=== PATIENT | female | born 1965 | race Caucasian/White ===

== ENCOUNTER 2018-05-18 06:18 | Inpatient (IN) | payer OTHER ==
--- NOTE | 2018-05-17 20:46 | PDGENHP ---
History and Physical - Chief Complaint RIGHT HIP PAIN - History of Present Illness 1. 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 ~Kokoenjoys running, weight lifting, hiking and walking the dog. Mariaa's~bilateral~hip pain (R>>L)~started several years ago, with~no~ recalled trauma or injury, and with~no~previous complaints.~Kokohas~a known history of hip dysplasia. Dr. Liao evaluated Poly and referred her to us to discuss a Periacetabular Osteotomy. Presentation today is of~C-Shaped pattern~right~hip pain; posterior/lateral left. ~The hip~does~wake her~at night and~does~click and catch on~her. Sitting~ can be a real struggle~for her.~Kokodoes~report suffering from lower back pain episodes. Kokohas~participated in physical therapy (several months)~and has~tried other conservative measures including cortisone GT bursa~injection (1 year ago, no relief)~, dry needling and massage therapy.~Viktoria~has not~received sufficient symptomatic improvement. Kokohas not~utilized medication for pain management, including NSAID and OTC acetaminophen.~Kokohas used medication since the pain began. Kokounderstands that~viktoria~has a hip and pelvis problem which should be researched and wishes to get a better understanding of~her~hip status, followed by an establishment of a treatment strategy, hoping~viktoria~would be able to get back to~her~well being active life. History: Past medical history:~~ Patient~~has a past medical history of Dry eyes, Headache(784.0), Heart burn, Hepatitis, Liver disease, and Strabismus. Relevant familial history:~None which is relevant~ Past surgical history:~ No. Surgery Anesthesia 1 sinus general 2 C5-7 cervical disc replacement general 3 R RCR general Mariaa~describes problematic issues with general anesthesia which includes nausea. I have reviewed, verified and agree with the past medical, surgical, family and social history. Current Medications:~has a current medication list which includes the following prescription(s): calcium, carafate, cyclobenzaprine, dicyclomine, fluticasone, ibuprofen, lactobacillus acidophilus, lubricant eye (pg-peg 400)(pf), montelukast, multivitamin,ther and minerals, omeprazole, pseudoephedrine hcl, and itbfkamblx-qhxdexqjyxljq-bizfaxlu. ALLERGIES:~is allergic to avocado; no known drug allergies; and protein hydrolyzate, animal. Objective: Physical Examination: Kokois 5~feet~7~inches tall and weighs~160~Lbs. Kokois AAO x3; she~is well-nourished, in NAD. Skin is warm and dry. ~Breathing is non-labored. ~CV with RRR by pulse. Abdomen is soft, NTND. Currently,~she~walks with a~abnormal~antalgic gait favoring Left side Trendelenburg sign is~negative~and proprioception~is normal,~both~sides. She~presents~with no~signs of joint laxity.~Beightons Score:~0 Lower spine examination is~negative~for sciatic or femoral nerve irritation with negative~SLR &~femoral stretch tests. Range of motion of the spine is normal~for flexion, extension, and rotations,~with~associated lumbar~pain. Strength, Sensation and pulses are~normal -~bilaterally Ankles and knees exams are~normal~and~no~mal-alignment is evident.~ She~has~no leg length discrepancy. Thigh circumference is~symmetric~with no evidence for muscle atrophy~on both~ sides. Hip ROM (degrees): FL ER At 90~hip FL IR At 90~hip FL AB AD EX IR Neutral hip ER Neutral hip R 100 40 40 30 0 5 45 20 L 105 40 35 35 5 10 45 15 Specific hip and pelvis tests: Impingement Test ABY Roll Add. Longus R +++ +++ + +++ L ++ ++ Negative Negative Glut. Med ITB Posterior Imp R ++ 5/5 strength Negative 5/5 strength Negative L Negative 5/5 strength Negative 5/5 strength Negative Squeeze test measured~weak Bony Symphysis pubis is~painful~to touch while concentric activity of the rectus abdominis, does~produce pain at its insertion. Ilio Psos specific tests are~negative for pain during cycling for~both hips~and no snap HF has~good strength~both hips. posterior~capsule tenderness Right HIP Greater trochanteric burse is~painful~on both hips.R>>L Piriformis tests: FAIR is~negative,~with no~local signs of neuritis related to sciatic nerve. SIJs examination is~painful R>>L~with~normal~ABY in relation and local tenderness. Hamstrings tests are~negative~functional contraction and negative~tendinopathy both hips. On a daily basis, the following percentages reflect~Mariaa's overall total pain: Deep hip:~80% GT:~20% Imaging: Radiology studies which I~have personally reviewed, analyzed and measured are below: XR: AP of the hip and pelvis: Performed in a~good~technique Coccyx~at level of~pubic symphysis Standing [place]~Lines are interrupted. Minimal~Pathological signs are seen in the Symphysis Pubis.~ Minimal~Pathological signs are seen at the Ischial~tuberosity. ~ Specific measurements show: NSA~ LCE Sourcil~Angle Sharp's angle Lat. Cam Lat. Pincer C.Over~sign Head~Coverage % ATDmm R N 20 10 45 - - - 75 N L N 21 10 43 - - - 69 N Pos. wall sign ISS NAD ~~Dysplasia Comments R Negative Negative 18.4~mm ++ L Negative Negative 21.8~mm ++ Sclerosis Sup. Lat. OA Cysts Joint Space-WBZ Joint Space-Medial R Negative Negative Negative 4.9~mm 4.7~mm L Negative Negative Negative 4.3~mm 4.5~mm X Table lateral: Anterior cam lesion is~seen~on both hips. Alpha Angle: ~ Right~54~dergrees Left~57~degrees Poor Quality 1.5T Right Hip~MRI shows:~cartilage damage, with possible cystic changes and bone edema (unable to clearly delineate due to poor MRI quality), labral tear, labral hypertrophy Impression and plan:~ Mariaa~is a~52 y.o.~active female~suffering from symptomatic~Right~hip pain due to Hip Dyplasia~and~Femoroacetabular impingement (IGNACIA)~Cam type,~with~ resultant labral tear causing significant disability to~her~and altering~her~sport and life activities. Physical examination, imaging, and~her~story correspond with the diagnosis mentioned above. I explained that hip dysplasia is a condition wherein the hip joint has excessive play~and instability due to a variety of factors, including the depth and adequacy of the socket, the orientation of the femur bone, and ligament laxity around the hip joint. Dysplasia ranges in severity from borderline to jigar, with treatment options being specific to the specific nature of the problem. Left untreated, the instability in the hip joint can cause progressive tearing of the labrum and deterioration of the surface cartilage, ultimately resulting in progressive osteoarthritis of the hip. I explained that femoroacetabular impingement (IGNACIA - Cam type) arises due to a bony or soft tissue conflict between the femur (ball) and acetabulum (socket) caused by an abnormality in the shape of the femoral head and neck. Over time, repetitive impingement can result in damage to the labrum and adjacent surface cartilage within the socket, ultimately giving rise to progressive osteoarthritis of the hip. I explained that although a labral tear can be a source of pain, it is rarely the root of the problem and typically occurs secondary to an underlying abnormality in the shape and mechanics of the hip joint. I reviewed conservative treatment options for Dysplasia and IGNACIA including activity modification to avoid positions of impingement or instability, physical therapy, non-steroidal anti-inflammatory medications, and various injections (corticosteroid and PRP) aimed at reducing inflammation in the hip joint or/and preventing dynamic instability and impingement. PRP injections may promote healing and reduce symptoms in certain cases but it will not repair chronically damaged tissue. Although these measures may help to buy time~and reduce current level of symptoms, they are not a definitive solution to the problem given the underlying abnormality in the shape of the hip joint. Patients who have failed conservative management and continue to experience symptoms are candidates for definitive surgical treatment, which may consist of hip arthroscopy alone or in combination with more invasive bony realignment procedures of the hip socket and/or femur called periacetabular osteotomy (FER) or derotational femoral osteotomy (DFO). Hip arthroscopy typically includes treating the labrum with either repair or reconstruction of the torn labrum; as well as addressing the underlying abnormalities by restoring the normal shape to the hip joint. If the cartilage is damaged a Microfracture surgical procedure may also be necessary to help stimulate the growth of fibrocartilage. If a patient requires a labral reconstruction or a Microfracture, the initial rehabilitation from the surgery may take longer, but the fci results are typically favorable. I have explained that because of her age and gender, the results of hip arthroscopy are less reproducible/predictable than with younger patients or male patients of the same age. I reviewed the technical aspects of periacetabular osteotomy (FER) including risks, benefits, and expected course of recovery.~Mariaa~understands that FER is an inpatient procedure carried out through two medium sized incisions on the front and back of the hip joint. The hip socket is cut, realigned, and stabilized with 2 3 internal screws. Risks include infection, bleeding, injury to nearby nerves or vessels, stiffness, persistent pain, instability, failure of bony healing, implant related complications, and venous thromboembolic disease. Rarely, revision surgery may be required to address these problems. Risks, potential complications, side effects and recovery from surgical procedure were discussed in length. We explained how this surgery is an open procedure, and though patients tend to do well in the long-term, it involves significant pain in the first 2-4 weeks post-op and a rather lengthy rehab.~Overall recovery takes approximately 6 12~months depending on the extent of damage and degree of repair. Mariaa~understands that she~will undergo hip arthroscopy 1 week prior to the FER to address damage inside the hip joint. Mariaa~understands that hip arthroscopy and FER are two separate procedures that are best performed one week apart, with the arthroscopy commencing first to "tighten up" any pathology evident in the hip joint (labral repair, etc.) and the FER open procedure occurring 7-10 days later to realign the acetabulum. Dr. Liao will perform the Right Hip Arthroscopy and a week after this surgery we would do a Right Periacetabular Osteotomy. Kokowill review the info presented. In order to obtain more detailed information regarding the alignment, orientation, and shape of the bony hip and pelvis I will order a CT scan to be performed. The results of the CT scan, including femoral torsion and acetabular version measured values and 3D images, will aid me in deciding on the best treatment strategy and surgical pre-planning. Kokowill contact us if she~wishes to pursue further treatment in the future. Kokois happy with this plan. I have also supplied~her~with handouts, outlining the expected surgical treatment and rehab involved. I wish~MariaaCecyall the best, ~~ Daquan Alvarado, PAC History Information - Allergies/Home Medication List Allergies/Adverse Reactions: No Known Allergies Allergy (Verified 04/22/18 11:36) Home Medications: Acetaminophen [Tylenol 325mg (*)] 325 mg PO DAILY PRN 04/22/18 [Last Taken Unknown] Herbals/Supplements -Info Only 1 ea PO DAILY 04/22/18 [Last Taken Unknown] Montelukast Sodium [Singulair 10 mg (*)] 10 mg PO DAILY 04/22/18 [Last Taken Unknown] Omeprazole 40 mg PO DAILY 04/22/18 [Last Taken Unknown] buPROPion [Wellbutrin 100mg (*)] 100 mg PO DAILY 04/22/18 [Last Taken Unknown] I have personally reviewed and updated: medical history - Social History Smoking Status: Never smoked Review of Systems Review of Systems: Physical Exam Physical Exam:
[2018-05-18] MEDS ORDERED: ceFAZolin 2 GM/DEXTROSE 100 ML IV ONE (06:25)
[2018-05-18] MEDS ORDERED: ACETAMINOPHEN 500 MG TAB PO ONE (06:25)
[2018-05-18] MEDS ORDERED: TRANEXAMIC ACID 1,000 MG in NS 100 ML IV ONE (06:25)
[2018-05-18] MEDS ORDERED: PREGABALIN 150 MG CAP PO ONE (06:25)
[2018-05-18] MEDS ORDERED: SCOPOLAMINE HYDROBROMIDE 1 MG/3 DAYS PATCH TD ONE (06:25)
[2018-05-18] MEDS ORDERED: LR 1,000 ML IV ONE (06:26)
[2018-05-18] MEDS ORDERED: MIDAZOLAM 2 MG/2 ML VIAL IVP ONE (07:02)
--- NOTE | 2018-05-18 07:04 | PDANEPAE ---
ANE Past Medical History - Cardiovascular History Hx Hypertension: No Hx Arrhythmias: No Hx Chest Pain: No Hx Coronary Artery / Peripheral Vascular Disease: No Hx CHF / Valvular Disease: No Hx Palpitations: No - Pulmonary History Hx COPD: No Hx Asthma/Reactive Airway Disease: Yes Hx Recent Upper Respiratory Infection: No Hx Oxygen in Use at Home: No Hx Sleep Apnea: No Sleep Apnea Screening Result - Last Documented: Negative Pulmonary History Comment: SINGULAIR - Neurologic History Hx Cerebrovascular Accident: No Hx Seizures: No Hx Dementia: No Neurologic History Comment: MIGRAINES FREQUENTLY - Endocrine History Hx Diabetes: No - Renal History Hx Renal Disorders: No - Liver History Hx Hepatic Disorders: No Hepatic History Comment: RIN. HEP A 1981 - Neurological & Psychiatric Hx Hx Neurological and Psychiatric Disorders: No - Cancer History Hx Cancer: No - Congenital Disorder History Hx Congenital Disorders: No - GI History Hx Gastrointestinal Disorders: Yes Gastrointestinal History Comment: ACID REFLUX. IBS - Other Health History Other Health History: NEG - Chronic Pain History Chronic Pain: Yes (HIP PAIN R) - Surgical History Prior Surgeries: SINUS SURGERY. CERVICAL DISC SURGERY. ESOPHAGEAL ABLATION. R SHOULDER SCOPE. CHOLECYSTECTOMY. TUBAL & REVERSAL. TUMMY TUCK. R WRIST SURGERY. L ANKLE SURGERY ANE Review of Systems Review of Systems: - Exercise capacity METS (RN): 5 METS ANE Patient History - Allergies Allergies/Adverse Reactions: No Known Allergies Allergy (Verified 04/22/18 11:36) - Home Medications Home Medications: Acetaminophen [Tylenol 325mg (*)] 325 mg PO DAILY PRN 04/22/18 [Last Taken 05/17] Montelukast Sodium [Singulair 10 mg (*)] 10 mg PO DAILY 04/22/18 [Last Taken 03/06] RX: Herbals/Supplements -Info Only 1 ea PO DAILY 04/22/18 [Last Taken 1 Week Ago ~05/11/18] RX: Omeprazole 40 mg PO DAILY 04/22/18 [Last Taken 1 Week Ago ~05/11/18] buPROPion [Wellbutrin 100mg (*)] 100 mg PO DAILY 04/22/18 [Last Taken 05/17/18] - NPO status NPO Since - Liquids (Date): 05/17/18 NPO Since - Liquids (Time): 18:30 NPO Since - Solids (Date): 05/17/18 NPO Since - Solids (Time): 18:30 - Smoking Hx Smoking Status: Never smoked - Family Anes Hx Family Hx Anesthesia Complications: NEG ANE Labs/Vital Signs - Labs Result Diagrams: 05/18/18 06:55 - Vital Signs Blood Pressure: 106/80 Heart Rate: 84 Respiratory Rate: 16 O2 Sat (%): 96 Height: 170.18 cm Weight: 72.575 kg ANE Physical Exam - ASA Status ASA Status: II ANE Anesthesia Plan Anesthesia Plan: general endotracheal anesthesia Regional Anesthesia: single shot NB, POPC/PSR
[2018-05-18] MEDS ORDERED: morphINE PF 5 MG/10 ML INJ IT ONE (07:20)
[2018-05-18] MEDS ORDERED: DEXMEDETOMIDINE HCL 400 MCG in NS 100 ML IV SCH (07:30)
[2018-05-18] MEDS ORDERED: CITRATE DEXTROSE SOLN 500 ML BAG ONE (07:38)
[2018-05-18] MEDS ORDERED: PROPOFOL/EMULSION 500 MG/50 ML BOTTLE IV ONE ×6 (07:48→12:09)
[2018-05-18] MEDS ORDERED: ROCURONIUM 50 MG/5 ML VIAL ONE ×2 (07:53→08:56)
[2018-05-18] MEDS ORDERED: fentaNYL 100 MCG/2 ML INJ ONE (07:53)
[2018-05-18] MEDS ORDERED: PROPOFOL 200 MG/20 ML VIAL ONE ×2 (08:10→13:12)
[2018-05-18] MEDS ORDERED: ePHEDrine SULFATE 25 MG/5 ML SYR ONE ×2 (08:44→11:40)
[2018-05-18] MEDS ORDERED: DEXAMETHASONE 4 MG/ML VIAL ONE (09:12)
[2018-05-18] MEDS ORDERED: HYDROmorphONE/DILAUDID 2 MG/ML INJ ONE (09:32)
[2018-05-18] MEDS ORDERED: SUGAMMADEX SODIUM 200 MG/2 ML VIAL IVP ONE ×2 (10:06→10:20)
[2018-05-18] MEDS ORDERED: MIDAZOLAM 2 MG/2 ML VIAL ONE (10:07)
[2018-05-18] MEDS ORDERED: CISATRACURIUM BESYLATE 20 MG/10 ML VIAL IV ONE (10:09)
[2018-05-18] MEDS ORDERED: PHENYLEPHRINE HCL 100 MCG/ML SYR ONE ×3 (11:37→12:31)
[2018-05-18] MEDS ORDERED: ceFAZolin 1 GM VIAL ONE ×2 (12:00)
[2018-05-18] MEDS ORDERED: TRANEXAMIC ACID 1,000 MG in NS (SYRINGE) 50 ML IRR ONE (12:00)
[2018-05-18] MEDS ORDERED: CALCIUM CHLORIDE 1 GM/10 ML INJ ONE (12:59)
[2018-05-18] MEDS ORDERED: HYDROmorphONE/DILAUDID 1 MG/ML INJ IVP PRN (13:15)
[2018-05-18] MEDS ORDERED: DIAZEPAM 5 MG/ML 1 ML SYR IVP PRN (13:15)
[2018-05-18] MEDS ORDERED: PROMETHAZINE HCL 25 MG/ML INJ IVP PRN (13:15)
[2018-05-18] MEDS ORDERED: PHENYLEPHRINE HCL 100 MCG/ML SYR IVP PRN (13:15)
[2018-05-18] MEDS ORDERED: NS 500 ML IV PRN (13:15)
[2018-05-18] MEDS ORDERED: fentaNYL 100 MCG/2 ML INJ IVP PRN (13:15)
[2018-05-18] MEDS ORDERED: ALBUTEROL 3 ML DEYVIAL IH PRN (13:15)
[2018-05-18] MEDS ORDERED: NALOXONE HCL 0.4 MG/ML INJ IVP PRN ×3 (13:15→16:16)
[2018-05-18] MEDS ORDERED: METOCLOPRAMIDE 10 MG/2 ML VIAL IVP PRN (13:15)
[2018-05-18] MEDS ORDERED: LR 500 ML IV PRN (13:15)
[2018-05-18] MEDS ORDERED: DEXAMETHASONE 4 MG/ML VIAL IVP PRN (13:15)
[2018-05-18] MEDS ORDERED: ONDANSETRON 4 MG/2 ML VIAL IVP PRN ×3 (13:15→16:16)
[2018-05-18] MEDS ORDERED: MEPERIDINE 25 MG/0.5 ML AMP IVP PRN (13:15)
[2018-05-18] MEDS ORDERED: NALOXONE HCL 0.4 MG/ML INJ ONE (14:08)
[2018-05-18] MEDS ORDERED: PHENYLEPHRINE 10 MG/ML SDV ONE (14:17)
[2018-05-18] MEDS ORDERED: ONDANSETRON DISINTEGRATING 4 MG TAB PO PRN (14:33)
[2018-05-18] MEDS ORDERED: ACETAMINOPHEN 325 MG TAB PO PRN (14:33)
[2018-05-18] MEDS ORDERED: DIAZEPAM 2 MG TAB PO PRN (14:33)
[2018-05-18] MEDS ORDERED: POLYETHYLENE GLYCOL 3350 17 GM PKT PO PRN (14:33)
[2018-05-18] MEDS ORDERED: LACTULOSE 20 GM/30 ML UDCUP PO PRN (14:33)
[2018-05-18] MEDS ORDERED: MAGNESIUM HYDROXIDE 30 ML UDCUP PO PRN (14:33)
[2018-05-18] MEDS ORDERED: BISACODYL 10 MG SUPP PR PRN (14:33)
[2018-05-18] MEDS ORDERED: diphenhydrAMINE 25 MG CAP PO PRN (14:35)
--- NOTE | 2018-05-18 14:54 | PDMN ---
Medical Necessity Medical necessity: Pt meets inpt criteria per MD order and SG-MS, Musculoskeletal Surgery or Procedure GRG, R periacetabular osteotomy ( IP only list) for R hip dysplasia, auth #[id number] APPROVED FOR CPT 17666 DONE INPNT LOS 5 DAYS.
[2018-05-18] MEDS ORDERED: ALBUMIN 5% 500 ML IV ONE (15:22)
[2018-05-18] MEDS ORDERED: LR 1,000 ML IV SCH (16:00)
[2018-05-18 16:06] LABS: INR 1.27 (0.83-1.16); PROTIME(PATIENT) 15.4 SEC (12.0-15.0)
--- NOTE | 2018-05-18 16:28 | POSTANESTH ---
Post Anesthetic Evaluation Cardiovascular Status: Normal, Stable, Tx Hyper/Hypo-tension Respiratory Status: Normal, Stable Level of Consciousness/Mental Status: Can Participate in Eval Pain Control: Adequate, Prn Tx Ordered Nausea/Vomiting Control: Adequate, Prn Tx Ordered Complications Possibly Related to Anesthesia: Other, See Comments (REQUIRING PHENYLEPHRINE GTT 0.25 MCG/KG/MIN TO MAINTAIN SBP>90MMHG. LABS NORMAL. URINE OUTPUT 300 ML IN 1HR. I UPDATED THE PATIENT'S ON THE PHONE AT 16:20.)
[2018-05-18] MEDS: NS 1,000 ML IV SCH (17:29)
[2018-05-18] MEDS: PHENYLEPHRINE HCL 50 MG in D5W 250 ML IV SCH (17:30)
--- NOTE | 2018-05-18 17:41 | PDHOSCONS ---
<Mariaa Ellis - Last Filed: 05/18/18 18:43> History and Physical - Chief Complaint Hypotension - History of Present Illness Ms. Alan is a 52 y/o female who underwent a right periacetabular osteotomy today performed by Dr. Hope. [facility] medicine has been asked to consult for medical management. S/p procedure today, she was hypotensive and requires phenylephrine drip to maintain sbp > 90 mmHg. EBL 1600cc, 800cc transfused back to Ms. Alan w/cell saver. Total IV fluids 5,000 ml, output 1,200 ml w/ total balance of fluids 3, 800 ml. One week prior, she had a right hip arthroscopy by Dr. Chow to "tighten up" any pathologic abnormalities (like her labral tear). She is a new patient to me. She was evaluated while in ICU, lying supine. She was pale in appearance. Denies CP, SOB, palpitations, lightheadedness or vision changes. She reports the only thing she feels is the surgical incision but it is not painful. Reports her blood pressure usually runs on the low end of normal. She was able to log roll appropriately and w/no issues. Past Medical/Surgical History include: bilateral hip dysplasia R > L, migraines , acid reflux, irritable bowel syndrome, asthma, dry eyes History Information - Allergies/Home Medication List Allergies/Adverse Reactions: No Known Allergies Allergy (Verified 04/22/18 11:36) Home Medications: Acetaminophen [Tylenol 325mg (*)] 325 mg PO DAILY PRN 04/22/18 [Last Taken 05/17] Herbals/Supplements -Info Only 1 ea PO DAILY 04/22/18 [Last Taken 1 Week Ago ~] Montelukast Sodium [Singulair 10 mg (*)] 10 mg PO DAILY 04/22/18 [Last Taken 03/06] Omeprazole 40 mg PO DAILY 04/22/18 [Last Taken 1 Week Ago ~05/11/18] buPROPion [Wellbutrin 100mg (*)] 100 mg PO DAILY 04/22/18 [Last Taken 05/17/18] I have personally reviewed and updated: family history, medical history, social history, surgical history - Past Medical History GERD Additional medical history: Bilateral hip dysplasia, dry eyes, strabismus, asthma, migraines, asthma, acid reflux - Surgical History Reports: cholecystectomy Additional surgical history: Sinus sx, cervical sx, right wrist sx - Family History Positive for: non-pertinent - Social History Smoking Status: Never smoked Alcohol Use: Occasionally Drug Use: None Additional social history: . Lives in [place]. 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 Has 4 children. Review of Systems Review of Systems: ROS: 10pt was reviewed & negative except for what was stated in HPI & below Physical Exam Physical Exam: Lab data was reviewed. Case discussed w/ consulting attending, Dr. Mukesh Lopez. WBC: 5.64 prior to sx; 15.73 w/ left shift post-op H/H: 15.0/43.8 prior to sx; 13.8/41.1 post-op Temp Pulse Resp BP Pulse Ox 36.4 C 59 L 14 122/70 H 96 05/18/18 17:14 05/18/18 17:14 05/18/18 17:14 05/18/18 17:14 05/18/18 17:14 O2 (L/minute) 3 Constitutional: no apparent distress, appears nourished, not in pain, other ( Pale in appearance) Eyes: PERRL, anicteric sclera, EOMI Ears, Nose, Mouth, Throat: moist mucous membranes, hearing normal, ears appear normal, no oral mucosal ulcers Cardiovascular: regular rate and rhythym, no murmur, rub, or gallop, bradycardia , No edema Peripheral Pulses: 2+: dorsalis-pedis (R), dorsalis-pedis (L) Respiratory: no respiratory distress, no rales or rhonchi, clear to auscultation Gastrointestinal: normoactive bowel sounds, soft, non-tender abdomen, no palpable masses Genitourinary: no bladder fullness, no bladder tenderness Skin: warm, normal color, no rashes or abrasions, no fluctuance, no induration, other (Surgical dressings (ant and post) R hip C/D/I. 3x gauze dressings on ant proximal quad from prior sx), No mottled Musculoskeletal: full muscle strength, no muscle tenderness, normal joint ROM, no joint effusions Neurologic: AAOx3, sensation intact bilaterally, CN II-XII Intact Psychiatric: interacting appropriately, not anxious, not encephalopathic, thought process linear Lymph, Heme, Immunologic: no cervical LAD, no supraclavicular LAD Lab Data & Imaging Review 05/18/18 15:15 05/18/18 15:15 WBC 15.73 10^3/uL (3.80-9.50) H 05/18/18 15:15 RBC 4.63 10^6/uL (4.18-5.33) 05/18/18 15:15 Hgb 13.8 g/dL (12.6-16.3) 05/18/18 15:15 Hct 41.1 % (38.0-47.0) 05/18/18 15:15 MCV 88.8 fL (81.5-99.8) 05/18/18 15:15 MCH 29.8 pg (27.9-34.1) 05/18/18 15:15 MCHC 33.6 g/dL (32.4-36.7) 05/18/18 15:15 RDW 12.8 % (11.5-15.2) 05/18/18 15:15 Plt Count 248 10^3/uL (150-400) 05/18/18 15:15 MPV 9.3 fL (8.7-11.7) 05/18/18 15:15 Neut % (Auto) 88.3 % (39.3-74.2) H 05/18/18 15:15 Lymph % (Auto) 7.4 % (15.0-45.0) L 05/18/18 15:15 [place] % (Auto) 2.9 % (4.5-13.0) L 05/18/18 15:15 Eos % (Auto) 0.1 % (0.6-7.6) L 05/18/18 15:15 Baso % (Auto) 0.3 % (0.3-1.7) 05/18/18 15:15 Nucleat RBC Rel Count 0.0 % (0.0-0.2) 05/18/18 15:15 Absolute Neuts (auto) 13.91 10^3/uL (1.70-6.50) H 05/18/18 15:15 Absolute Lymphs (auto) 1.17 10^3/uL (1.00-3.00) 05/18/18 15:15 Absolute Monos (auto) 0.45 10^3/uL (0.30-0.80) 05/18/18 15:15 Absolute Eos (auto) 0.01 10^3/uL (0.03-0.40) L 05/18/18 15:15 Absolute Basos (auto) 0.04 10^3/uL (0.02-0.10) 05/18/18 15:15 Absolute Nucleated RBC 0.00 10^3/uL (0-0.01) 05/18/18 15:15 Immature Gran % 1.0 % (0.0-1.1) 05/18/18 15:15 Immature Gran # 0.15 10^3/uL (0.00-0.10) H 05/18/18 15:15 PT 15.4 SEC (12.0-15.0) H 05/18/18 15:15 INR 1.27 (0.83-1.16) H 05/18/18 15:15 APTT 29.7 SEC (23.0-38.0) 05/18/18 15:15 Puncture Site ARTERIAL LINE 05/18/18 14:40 Patient Temperature 37.0 DEGREES 05/18/18 14:40 pCO2 39 mmHg (34-38) H 05/18/18 14:40 pO2 270 mmHg (65-75) H 05/18/18 14:40 Total CO2 19 mEq/L (23-27) L 05/18/18 14:40 ABG pH 7.28 (7.35-7.45) L 05/18/18 14:40 ABG HCO3 18 mEq/L (22-26) L 05/18/18 14:40 ABG O2 Saturation 99 % (92-95) H 05/18/18 14:40 ABG Base Excess -8.2 mEq/L (-2.5-2.5) L 05/18/18 14:40 VBG Lactic Acid 2.5 mmol/L (0.7-2.1) H 05/18/18 15:15 O2 Concentration % NG % (0-100) 05/18/18 14:40 Sodium 138 mEq/L (135-145) 05/18/18 15:15 Potassium 5.1 mEq/L (3.5-5.2) 05/18/18 15:15 Chloride 111 mEq/L (97-110) H 05/18/18 15:15 Carbon Dioxide 21 mEq/l (22-31) L 05/18/18 15:15 Anion Gap 6 mEq/L (6-14) 05/18/18 15:15 BUN 15 mg/dL (7-23) 05/18/18 15:15 Creatinine 0.8 mg/dL (0.6-1.0) 05/18/18 15:15 Estimated GFR > 60 05/18/18 15:15 Glucose 121 mg/dL (70-100) H 05/18/18 15:15 Calcium 9.4 mg/dL (8.5-10.4) 05/18/18 15:15 Ionized Calcium 1.33 MMOL/L (1.12-1.30) H 05/18/18 15:15 Patient ABO/Rh A POSITIVE 05/18/18 15:15 Antibody Screen NEGATIVE 05/18/18 15:15 Assessment & Plan Plan: This is a 52 y/o female s/p right periacetabular osteotomy w/ EBL of 1600cc, 800 cc of which was transfused back to her however she continues to be hypotensive and was started on a phenylephrine drip to maintain sbp >90 mmHg. Her last set of vitals were: BP 122/70, HR 59, Resp 14, 96% 3L NC, 36.4c. While evaluating the pt in room, BP was checked again which was 89/57. ABGs were pulled s/p and she was in an acidotic state. High white count w/ left shift however afebrile. Most likely d/t acute blood loss and hypotensive state. Plan: -Cont phenylephrine drip to maintain BP -PICC line placement -Cycle H/H Q4H x 4 -She has already been type and screened for possible transfusion; cont to monitor H/H; if significant drop, transfuse -Cont w/IVF -May cont home medications of Singulair, pepcid, and wellbutrin -Pain management PO/IVP PRN -PT/OT to evaluate and treat Diet: Regular Code: Full VTE ppx: Per ortho recommendation Dispo: Admit to inpatient <Braeden Mendez - Last Filed: 05/19/18 00:07> History and Physical - History of Present Illness I have seen the patient, reviewed the chart and labs and agree with Poly Ellis in her assessment and plan. Review of Systems Review of Systems: Physical Exam Physical Exam: Temp Pulse Resp BP Pulse Ox 36.9 C 62 14 88/50 L 91 L 05/18/18 20:00 05/18/18 23:15 05/18/18 23:15 05/18/18 23:15 05/18/18 23:15 O2 (L/minute) 1 Lab Data & Imaging Review 05/18/18 23:15 05/18/18 15:15 WBC 15.73 10^3/uL (3.80-9.50) H 05/18/18 15:15 RBC 4.63 10^6/uL (4.18-5.33) 05/18/18 15:15 Hgb 10.7 g/dL (12.6-16.3) L 05/18/18 23:15 Hct 31.0 % (38.0-47.0) L 05/18/18 23:15 MCV 88.8 fL (81.5-99.8) 05/18/18 15:15 MCH 29.8 pg (27.9-34.1) 05/18/18 15:15 MCHC 33.6 g/dL (32.4-36.7) 05/18/18 15:15 RDW 12.8 % (11.5-15.2) 05/18/18 15:15 Plt Count 248 10^3/uL (150-400) 05/18/18 15:15 MPV 9.3 fL (8.7-11.7) 05/18/18 15:15 Neut % (Auto) 88.3 % (39.3-74.2) H 05/18/18 15:15 Lymph % (Auto) 7.4 % (15.0-45.0) L 05/18/18 15:15 Beau[place] % (Auto) 2.9 % (4.5-13.0) L 05/18/18 15:15 Eos % (Auto) 0.1 % (0.6-7.6) L 05/18/18 15:15 Baso % (Auto) 0.3 % (0.3-1.7) 05/18/18 15:15 Nucleat RBC Rel Count 0.0 % (0.0-0.2) 05/18/18 15:15 Absolute Neuts (auto) 13.91 10^3/uL (1.70-6.50) H 05/18/18 15:15 Absolute Lymphs (auto) 1.17 10^3/uL (1.00-3.00) 05/18/18 15:15 Absolute Monos (auto) 0.45 10^3/uL (0.30-0.80) 05/18/18 15:15 Absolute Eos (auto) 0.01 10^3/uL (0.03-0.40) L 05/18/18 15:15 Absolute Basos (auto) 0.04 10^3/uL (0.02-0.10) 05/18/18 15:15 Absolute Nucleated RBC 0.00 10^3/uL (0-0.01) 05/18/18 15:15 Immature Gran % 1.0 % (0.0-1.1) 05/18/18 15:15 Immature Gran # 0.15 10^3/uL (0.00-0.10) H 05/18/18 15:15 PT 15.4 SEC (12.0-15.0) H 05/18/18 15:15 INR 1.27 (0.83-1.16) H 05/18/18 15:15 APTT 29.7 SEC (23.0-38.0) 05/18/18 15:15 Puncture Site ARTERIAL LINE 05/18/18 14:40 Patient Temperature 37.0 DEGREES 05/18/18 14:40 pCO2 39 mmHg (34-38) H 05/18/18 14:40 pO2 270 mmHg (65-75) H 05/18/18 14:40 Total CO2 19 mEq/L (23-27) L 05/18/18 14:40 ABG pH 7.28 (7.35-7.45) L 05/18/18 14:40 ABG HCO3 18 mEq/L (22-26) L 05/18/18 14:40 ABG O2 Saturation 99 % (92-95) H 05/18/18 14:40 ABG Base Excess -8.2 mEq/L (-2.5-2.5) L 05/18/18 14:40 VBG Lactic Acid 2.5 mmol/L (0.7-2.1) H 05/18/18 15:15 O2 Concentration % NG % (0-100) 05/18/18 14:40 Sodium 138 mEq/L (135-145) 05/18/18 15:15 Potassium 5.1 mEq/L (3.5-5.2) 05/18/18 15:15 Chloride 111 mEq/L (97-110) H 05/18/18 15:15 Carbon Dioxide 21 mEq/l (22-31) L 05/18/18 15:15 Anion Gap 6 mEq/L (6-14) 05/18/18 15:15 BUN 15 mg/dL (7-23) 05/18/18 15:15 Creatinine 0.8 mg/dL (0.6-1.0) 05/18/18 15:15 Estimated GFR > 60 05/18/18 15:15 Glucose 121 mg/dL (70-100) H 05/18/18 15:15 Calcium 9.4 mg/dL (8.5-10.4) 05/18/18 15:15 Ionized Calcium 1.33 MMOL/L (1.12-1.30) H 05/18/18 15:15 Patient ABO/Rh A POSITIVE 05/18/18 15:15 Antibody Screen NEGATIVE 05/18/18 15:15
--- NOTE | 2018-05-18 18:08 | SUROPNOTE ---
[facility]ULLY Operative Report - Surgery Surgery was performed at [facility] on~05/18/18~ Diagnosis:~Right 1. Hip Acetabular Dysplasia ~ Operation: Right~Anamika Acetabular Osteotomy (FER) Surgeon: Max Hope MD Mine Safety Manager:~~Justa Bradshaw MD Anesthetic: General + spinal Procedure: General anesthetic. Antibiotics given. Cell saver in use. Fluoroscopy. Phase 1: Position lateral, diagonal skin incision between ischial tuberosity and greater trochanter as for posterior hip approach. Blunt split of glut max fibers. Identification of fat pad overlying sciatic nerve. Exposure of sciatic nerve under fat pad, gently retracting it away-medially to ischial tuberosity. Exposure of subcotoloid fossa proximal to short rotators. UsingPrecision saw, osteotomy of subcotoloid roybr38-83 mm short of (lateral to) thesciatic notch. Closure of lateral cut. Patient is turned supine. Phase 2: Skin incision just distal to ASIS. Using diathermy the iliac spine was exposed and inguinal ligament + Sartorious were retracted medially, taking the LFCN with them, protecting it. Inner ilium was dissected from iliacus muscle bluntly , with a cob and swab. Dissection continued towards lateral superior ramus pubis. Using fluoroscopy an osteotomy of lateral superior ramus, just medial to tear drop, was performed with~curved fish mouth osteotome. Phase 3: Osteotomy lines of the ilium were marked with diathermy as pre planned according to XR/CT and expected correction of acatabulum. 2 Shanz screws were drilled into central acetabular fragment, corresponding with planned correction angles, in order to mobilize central acetabular fragment after osteotomy is complete. ~Iliac osteotomy was performed with reciprocating saw and the main acetabular fragment was moved to realign weight bearing position. After confirmation of correction using fluoroscopy in AP and false profile planes, the fragment was fixed with 3 -~5.5mm~~full threaded~screws~and 1 -~4mm~~full threaded~screw. Inguinal ligament and Sartorious were attached back to ASIS through drill holes. Incision was closed according to soft tissue layers. Skin was closed with~subdermal Monocryl. Final fluoro shots were obtained to confirm position/correction. After surgery~Mariaa~moved both lower limbs and had no NV motor compromise. Specimen - none Bleeding -~possible 1600mmml Complication -~patient had very slow wake up and lower BP despite good HH, probably due to Presidex anesthesia. Evaluation under anesthesia: IR at 90 degrees hip flexion prior to FER was~35~degrees and after FER was 15-20 ~degrees. Bleeding:~1600~cc into cell-saver, 805~of blood products were returned to patient. HOWEVER, this did not fit post op HH which was so this may have been biased by anticoagulants.~ Post op instructions: 1.~tow touch~weight bearing crutches for 6 weeks 2. Epidural analgesia for 24-48 hours 3. Continuous SCD 4. Aspirin 81 mg X1 day once Epidural is discontinued 5. Avoid hip flexion past 90 and hip External rotation. 6. PT according to my recommendations at follow up visit Kind regards, Dr. Max Hope
[2018-05-18] MEDS ORDERED: ALTEPLASE 2 MG VIAL IVP PRN (18:13)
[2018-05-18] MEDS: oxyCODONE IR 5 MG TAB PO SCH ×2 (19:02→21:53)
[2018-05-18] MEDS: SENNOSIDES/DOCUSATE SODIUM TAB PO SCH (21:51)
[2018-05-18] MEDS: HYDROmorphONE/DILAUDID 6 MG/30 ML PCA IV PRN (23:49)
[2018-05-19] MEDS: METOCLOPRAMIDE 10 MG/2 ML VIAL IVP PRN (00:04)
[2018-05-19] MEDS ORDERED: PANTOPRAZOLE SODIUM 40 MG TAB PO ONE (00:30)
[2018-05-19] MEDS: oxyCODONE IR 5 MG TAB PO SCH ×6 (02:01→21:40)
--- NOTE | 2018-05-19 08:25 | PDPAINCON ---
Pain Management Consultation Patient referred by : Dixon - Subjective Pain at rest (/10): 3 Pain with activity (/10): 6 Pain is: under control Activity: unable to ambulate - Objective Technique: spinal opioid Vital signs: stable - Assessment/Plan Additional comments: Duramorph starting to wear off and discussed ARCHITECTURE INTERN usage
[2018-05-19] MEDS ORDERED: NON-FORMULARY NEW DRUG (Omeprazole [Omeprazole] 40 MG) PO SCH (09:00)
[2018-05-19] MEDS ORDERED: buPROPion 100 MG TAB PO SCH (09:00)
[2018-05-19] MEDS: MONTELUKAST SODIUM 10 MG TAB PO SCH (09:03)
[2018-05-19] MEDS: PANTOPRAZOLE SODIUM 40 MG TAB PO SCH (09:03)
[2018-05-19] MEDS: SENNOSIDES/DOCUSATE SODIUM TAB PO SCH ×2 (09:03→21:39)
[2018-05-19] MEDS: buPROPion SR 100 MG TAB PO SCH (09:03)
[2018-05-19] MEDS ORDERED: NS 1,000 ML IV ONE (10:04)
--- NOTE | 2018-05-19 11:49 | POSTANESTH ---
Post Anesthetic Evaluation Cardiovascular Status: Tx Hyper/Hypo-tension Respiratory Status: Normal, Stable Level of Consciousness/Mental Status: Can Participate in Eval Pain Control: Adequate, Prn Tx Ordered Nausea/Vomiting Control: Adequate, Prn Tx Ordered Complications Possibly Related to Anesthesia: None Noted (POD 1 s/p right FER. I saw the patient in the ICU. AM H/H 10.6/29.8. Still on phenylephrine 50mcg/ min. BP 96/66. Confirmed that last dose of Lovenox for DVT ppx on Thursday. Pt is able to move around in her room. Comfortable. All questions answered.)
--- NOTE | 2018-05-19 12:49 | HOSPPROG ---
Hospitalist Progress Note Assessment/Plan: This is a 52 y/o female s/p right periacetabular osteotomy w/ EBL of 1600cc, 800 cc of which was transfused back to her however she continues to be hypotensive and was started on a phenylephrine drip to maintain sbp >90 mmHg. #s/p Periacetabular Osteotomy -post op care per Surgery -pain mgmt -PT/OT #Post Operative Anemia #Persistent Hypotension -Still on Phenylephrine -She is getting another liter of normal Saline. If she still has hypotension despite the liter, would consider transfusion. D/W Dr. Hope. 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 Pt is agreeable. #Hx of Asthma: not in exacerbation DVT proph: per primary. SCD's. Aspirin after Epidural Access: PICC line Diet: Regular Code: Full Dispo: cont ICU total critical care time is 35 mins Subjective: no cp or sob. no n/v. still hypotensive Objective: Vital Signs Temp Pulse Resp BP Pulse Ox 37.1 C 78 18 99/66 L 97 05/19/18 12:00 05/19/18 12:00 05/19/18 12:00 05/19/18 12:00 05/19/18 12:00 Laboratory Results 05/19/18 03:50 05/19/18 03:50 05/18/18 05/19/18 05/20/18 05:59 05:59 05:59 Intake Total 6902 1000 Output Total 3300 40 Balance 3602 960 PT 15.4 SEC (12.0-15.0) H 05/18/18 15:15 INR 1.27 (0.83-1.16) H 05/18/18 15:15 - Physical Exam Constitutional: no apparent distress Eyes: PERRL, EOMI Ears, Nose, Mouth, Throat: moist mucous membranes, hearing normal Cardiovascular: regular rate and rhythym Respiratory: no respiratory distress, no rales or rhonchi, clear to auscultation Gastrointestinal: normoactive bowel sounds, soft, non-tender abdomen Skin: warm Neurologic: AAOx3 Psychiatric: interacting appropriately, not anxious, not encephalopathic Lymph, Heme, Immunologic: No petechiae ICD10 Worksheet Patient Problems: Problems Problem Status Onset Hypotension Acute - ICD10 Problem Qualifiers (1) Hypotension
[2018-05-19] MEDS: PHENYLEPHRINE HCL 50 MG in D5W 250 ML IV SCH (12:52)
[2018-05-19] MEDS: NS 1,000 ML IV SCH ×2 (12:55→22:38)
[2018-05-19] MEDS ORDERED: ALBUMIN 5% 250 ML IV ONE (14:22)
[2018-05-19] MEDS: HYDROmorphONE/DILAUDID 6 MG/30 ML PCA IV PRN (14:40)
--- NOTE | 2018-05-19 16:08 | GCON ---
[f rep st] CONSULTATION PULMONARY/CRITICAL CARE CONSULTATION DATE OF CONSULTATION: 05/19/2018 REASON FOR REFERRAL: Evaluation and management of hypotension. HISTORY: The patient is a 52-year-old woman who underwent a right periacetabular osteotomy yesterday . During the procedure she had estimated blood loss of 1600 cc, with 800 cc of Cell Saver. She had a total IV fluids of 5000 with output of 1200. After the procedure, she was hypotensive and was plac ed on a phenylephrine drip in order to maintain blood pressure. Overnight she continued to require p henylephrine in order to maintain her blood pressure. She reports feeling a bit lightheaded when she stands up, but otherwise feels okay. She has had good urine output. Reports her pain control is fa irly good, although she is still having some breakthrough. PAST MEDICAL HISTORY: 1. GERD. 2. Bilateral hip dysplasia. 3. Asthma. 4. Acid reflux. MEDICATIONS: Include: 1. Singulair. 2. Omeprazole. 3. Wellbutrin. ALLERGIES: None. SOCIAL HISTORY: The patient has never smoked and drinks just occasionally. She is and lives in [place]. FAMILY HISTORY: Unremarkable. REVIEW OF SYSTEMS: A 10-point review of systems adds nothing to the history of present illness. PHYSICAL EXAMINATION: GENERAL: The patient is awake, alert, in no acute distress. VITAL SIGNS: Bl ood pressure 85/52 off phenylephrine. Her systolic was about 100 while on phenylephrine. Her heart rate 93, oxygen saturations are 94% on 2 L. HEENT: Normocephalic and atraumatic. No icterus. NECK : No JVD. Trachea is midline. CHEST: Clear to auscultation. CARDIAC: Regular rate and rhythm wi thout murmur. ABDOMEN: Soft, nontender. Bowel sounds are present. EXTREMITIES: No clubbing, cyan osis, or edema. NEURO: The patient is awake and alert. She has no gross motor or sensory deficits. LABORATORY: Hemoglobin is 9.6, down from 11.1 postoperatively and 15.0 preoperatively. Chemistry gr oup is normal. An ionized calcium was 1.3 yesterday. An arterial blood gas yesterday showed a pH of 7.28 with a pO2 of 270, CO2 of 39, and a bicarbonate of 18. A lactate was 2.5 yesterday. A chest x-ray shows normal lung mayer with a PICC line that is in appropriate position. Images revi ewed by me. ASSESSMENT: 1. Status post right periacetabular osteotomy. The intraoperative course was remarkable for 1600 cc of blood loss, with approximately 50% of that given back as Cell Saver. 2. Hypotension. This is likely related to a combination of intravascular volume depletion, epidural anesthesia, and intraoperative anesthesia. In addition, the patient apparently tends to run a blood pressure in the low-normal side. She is minimally symptomatic with hypotension, with just some slig ht lightheadedness with standing. Her urine output has been good. She was on norepinephrine when I initially saw her, but has been able to come off it by lowering the blood pressure target. During th is period, she remained asymptomatic. 3. Anemia. The patient has developed mild anemia as expected given the intraoperative blood loss. RECOMMENDATIONS: Continue to monitor off phenylephrine. I will give her a dose of albumin to see if that will help raise her blood pressure. As long as she is asymptomatic and her blood pressure is a t least in the 80s, I would not restart pressors. If she remains stable, she could potentially trans gladys to the medical-surgical floor. /[id number]/MODL
--- NOTE | 2018-05-19 16:55 | ASMTCASEMG ---
Living Arrangements What is your living Answers: With Spouse arrangement? Who do you live with? Type Of Residence What kind of residence do Answers: House you live in? Discharge Plan Comments Coordination Status Comments Notes: Patient is a 52yo female who comes to [facility] for right hip arthroscopy and will have a second procedure, right periacetabular osteotomy a week after the first procedure. OT/PT have been ordered. D/C plan TBD. CM will follow. Date Signed: 05/19/2018 04:54 PM Electronically Signed By:Erika Ye LCSW
--- NOTE | 2018-05-19 23:46 | SOAPPROG ---
SOAP Progress Note Assessment/Plan: Assessment: 52 yo F POD#1 s/p R FER. Initial post-op course complicated by slow wake-up and need for low dose pressors, now off and stable. 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 Hope prior to d/c 05/19/18 23:43 Subjective: Pt feels well, pain level is lower than she anticipated post-operatively. No CP , SOB, N/V. Objective: Vital Signs Temp Pulse Resp BP Pulse Ox 37.1 C 80 15 117/65 94 05/19/18 12:00 05/19/18 18:00 05/19/18 18:00 05/19/18 18:00 05/19/18 18:00 Laboratory Results 05/19/18 12:50 05/19/18 03:50 05/18/18 05/19/18 05/20/18 05:59 05:59 05:59 Intake Total 6902 4250 Output Total 3300 1310 Balance 3602 2940 PT 15.4 SEC (12.0-15.0) H 05/18/18 15:15 INR 1.27 (0.83-1.16) H 05/18/18 15:15 Gen: NAD R hip dressings c/d/i with expected ecchymosis Lateral thigh sensation 3/10 5/5 TA, GSC, EHL SILT throughout foot ICD10 Worksheet Patient Problems: Problems Problem Status Onset Hypotension Acute
[2018-05-20] MEDS: oxyCODONE IR 5 MG TAB PO SCH ×6 (01:32→21:33)
[2018-05-20] MEDS ORDERED: buPROPion SR 100 MG TAB PO SCH (09:00)
[2018-05-20] MEDS: MONTELUKAST SODIUM 10 MG TAB PO SCH (09:18)
[2018-05-20] MEDS: PANTOPRAZOLE SODIUM 40 MG TAB PO SCH (09:18)
[2018-05-20] MEDS: buPROPion SR 100 MG TAB PO SCH (09:18)
[2018-05-20] MEDS: SENNOSIDES/DOCUSATE SODIUM TAB PO SCH ×2 (09:19→21:33)
--- NOTE | 2018-05-20 14:38 | HOSPPROG ---
Hospitalist Progress Note Assessment/Plan: This is a 52 y/o female s/p right periacetabular osteotomy w/ EBL of 1600cc, 800 cc of which was transfused back to her. She was on phenylephrine until 04/18 and now stable off it. #s/p Periacetabular Osteotomy -post op care per Surgery -pain mgmt -PT/OT #Post Operative Anemia, did not need transfusion #Hypotension, resolved -etiology likely multifactorial, blood loss, anesthesia -off Phenylephrine #Hx of Asthma: not in exacerbation DVT proph: per primary. SCD's. Aspirin after Epidural Access: PICC line Diet: Regular Code: Full Dispo: ok to transfer out of Med Surg. Dispo per primary Subjective: no cp or sob. bp is better. Objective: Vital Signs Temp Pulse Resp BP Pulse Ox 36.9 C 97 16 116/64 93 05/20/18 13:39 05/20/18 13:39 05/20/18 13:39 05/20/18 13:39 05/20/18 13:39 Laboratory Results 05/19/18 12:50 05/19/18 03:50 05/19/18 05/20/18 05/21/18 05:59 05:59 05:59 Intake Total 6902 5431 140 Output Total 3300 2210 400 Balance 3602 3221 -260 PT 15.4 SEC (12.0-15.0) H 05/18/18 15:15 INR 1.27 (0.83-1.16) H 05/18/18 15:15 - Physical Exam Constitutional: no apparent distress Eyes: PERRL, EOMI Ears, Nose, Mouth, Throat: moist mucous membranes, hearing normal Cardiovascular: regular rate and rhythym, No edema Respiratory: no respiratory distress, no rales or rhonchi, clear to auscultation Gastrointestinal: normoactive bowel sounds Skin: warm Neurologic: AAOx3 Psychiatric: interacting appropriately, not anxious, not encephalopathic Lymph, Heme, Immunologic: No petechiae ICD10 Worksheet Patient Problems: Problems Problem Status Onset Hypotension Acute - ICD10 Problem Qualifiers (1) Hypotension
[2018-05-20] MEDS: ASPIRIN EC 81 MG TAB PO SCH (15:09)
[2018-05-20] MEDS: HYDROmorphONE/DILAUDID 6 MG/30 ML PCA IV PRN (18:46)
--- NOTE | 2018-05-20 22:55 | SOAPPROG ---
SOAP Progress Note Assessment/Plan: Assessment: 2nd post op day Right periacetabular osteotomy Plan: Wean off [employer] Dilaudid up with PT/OT Pelvis x-ray tomorrow 05/20/18 22:52 Subjective: Poly was transferred from ICU today after her BP stabilized. Aimee had been taken out soon after surgery in the ICU. Her pain has been well managed with [employer] and Oxycodone. She denies any cp, no sob or nausea. Objective: Vital Signs Temp Pulse Resp BP Pulse Ox 36.6 C 102 H 16 119/67 97 05/20/18 20:00 05/20/18 20:00 05/20/18 20:00 05/20/18 20:00 05/20/18 20:00 Laboratory Results 05/19/18 12:50 05/19/18 03:50 05/19/18 05/20/18 05/21/18 05:59 05:59 05:59 Intake Total 6902 5431 140 Output Total 3300 2210 400 Balance 3602 3221 -260 PT 15.4 SEC (12.0-15.0) H 05/18/18 15:15 INR 1.27 (0.83-1.16) H 05/18/18 15:15 Right Hip Dressings clean dry intact ecchymosis and edema some thigh numbness NVI distally full ROM of foot and ankle ICD10 Worksheet Patient Problems: Problems Problem Status Onset Hypotension Acute
[2018-05-21] MEDS: oxyCODONE IR 5 MG TAB PO SCH ×7 (02:27→22:16)
[2018-05-21] MEDS: SENNOSIDES/DOCUSATE SODIUM TAB PO SCH ×2 (10:42→20:51)
[2018-05-21] MEDS: buPROPion SR 100 MG TAB PO SCH (10:43)
[2018-05-21] MEDS: MONTELUKAST SODIUM 10 MG TAB PO SCH (10:43)
[2018-05-21] MEDS: PANTOPRAZOLE SODIUM 40 MG TAB PO SCH (10:43)
[2018-05-21] MEDS: ASPIRIN EC 81 MG TAB PO SCH (10:43)
[2018-05-21] MEDS: METOCLOPRAMIDE 10 MG/2 ML VIAL IVP PRN (11:53)
--- NOTE | 2018-05-21 13:47 | ASMTCMCOM ---
CM Note CM Note Notes: Chart review, patient assessed by PT, recommending outpatient rehab. CM discussed with SARAH Watson, will likely discharge home independent when medically stable. CM to follow. D/C plan: independent Date Signed: 05/21/2018 01:46 PM Electronically Signed By:Mirta Pace
--- NOTE | 2018-05-21 16:13 | HOSPPROG ---
Hospitalist Progress Note Assessment/Plan: This is a 52 y/o female s/p right periacetabular osteotomy w/ EBL of 1600cc, 800 cc of which was transfused back to her. She was on phenylephrine until 04/18 and now stable off it. #s/p Periacetabular Osteotomy -post op care per Surgery -pain mgmt, needs to wean off [employer] -PT/OT #Post Operative Anemia, did not need transfusion #Hypotension, resolved -etiology likely multifactorial, blood loss, anesthesia -off Phenylephrine -expect further improvement when off narcotic pain meds #Hx of Asthma: not in exacerbation DVT proph: per primary. SCD's. Aspirin after Epidural Access: PICC line Diet: Regular Code: Full Dispo: Dispo per primary Subjective: bp better. Low 100's systolic. no cp or sob Objective: Vital Signs Temp Pulse Resp BP Pulse Ox 36.6 C 93 14 102/61 93 05/21/18 12:00 05/21/18 12:00 05/21/18 12:00 05/21/18 12:00 05/21/18 12:00 Laboratory Results 05/19/18 12:50 05/19/18 03:50 05/20/18 05/21/18 05/22/18 05:59 05:59 05:59 Intake Total 5431 890 340 Output Total 2210 400 Balance 3221 490 340 PT 15.4 SEC (12.0-15.0) H 05/18/18 15:15 INR 1.27 (0.83-1.16) H 05/18/18 15:15 - Physical Exam Constitutional: no apparent distress Eyes: PERRL, EOMI Ears, Nose, Mouth, Throat: moist mucous membranes, hearing normal Cardiovascular: regular rate and rhythym, No edema Respiratory: no respiratory distress, no rales or rhonchi, clear to auscultation Gastrointestinal: normoactive bowel sounds, soft, non-tender abdomen Skin: warm Neurologic: AAOx3 Psychiatric: interacting appropriately, not anxious, not encephalopathic Lymph, Heme, Immunologic: No petechiae ICD10 Worksheet Patient Problems: Problems Problem Status Onset Hypotension Acute - ICD10 Problem Qualifiers (1) Hypotension
[2018-05-22] MEDS: oxyCODONE IR 5 MG TAB PO SCH ×5 (02:32→17:11)
[2018-05-22] MEDS: buPROPion SR 100 MG TAB PO SCH (10:29)
[2018-05-22] MEDS: PANTOPRAZOLE SODIUM 40 MG TAB PO SCH (10:29)
[2018-05-22] MEDS: SENNOSIDES/DOCUSATE SODIUM TAB PO SCH (10:30)
[2018-05-22] MEDS: ASPIRIN EC 81 MG TAB PO SCH (10:30)
[2018-05-22] MEDS: MONTELUKAST SODIUM 10 MG TAB PO SCH (10:30)
[2018-05-22] MEDS ORDERED: ACETAMINOPHEN 325 MG TAB PO PRN (13:36)
--- NOTE | 2018-05-22 13:41 | HOSPPROG ---
Hospitalist Progress Note Assessment/Plan: This is a 52 y/o female s/p right periacetabular osteotomy w/ EBL of 1600cc, 800 cc of which was transfused back to her. First encounter, chart reviewed. #s/p Periacetabular Osteotomy -post op care per Surgery -doing well -PT/OT #anemia -expected post op loss #Hypotension, resolved -had been on phenylephrine -multifactorial #constipation -hasn't had a bowel movement in almost a week -has been on bowel protocol, dose of mag citrate x 1 now #Hx of Asthma: not in exacerbation #DVT proph: per primary. SCD's. Aspirin #Access: PICC line #Plan: needs to have a bowel movement, should be ready for dc soon. Subjective: Poly is feeling well overall. Anxious to go home. Objective: Vital Signs Temp Pulse Resp BP Pulse Ox 36.8 C 86 14 104/62 97 05/22/18 11:51 05/22/18 11:51 05/22/18 11:51 05/22/18 11:51 05/22/18 11:51 Laboratory Results 05/19/18 12:50 05/19/18 03:50 05/21/18 05/22/18 05/23/18 05:59 05:59 05:59 Intake Total 890 1540 Output Total 400 300 Balance 490 1240 PT 15.4 SEC (12.0-15.0) H 05/18/18 15:15 INR 1.27 (0.83-1.16) H 05/18/18 15:15 - Physical Exam Constitutional: no apparent distress, appears nourished Eyes: PERRL Ears, Nose, Mouth, Throat: hearing normal Cardiovascular: regular rate and rhythym Respiratory: no respiratory distress Gastrointestinal: normoactive bowel sounds Skin: warm Musculoskeletal: generalized weakness Neurologic: AAOx3 Psychiatric: interacting appropriately ICD10 Worksheet Patient Problems: Problems Problem Status Onset Hypotension Acute
[2018-05-22] MEDS ORDERED: MAGNESIUM CITRATE 300 ML BOTTLE PO ONE (13:46)
[2018-05-22 15:54] VITALS: BP 103/74
--- NOTE | 2018-06-01 04:05 | GDS ---
[f rep st] DISCHARGE SUMMARY Poly underwent a right periacetabular osteotomy for right hip acetabular dysplasia on May 18, 2018. Intraoperatively, spinal and Yu catheters were placed. She was well pain managed postoperatively with spinal [employer] and oral analgesia. Postoperatively, she did become hypotensive and was initially brought to the ICU to maintain BP with pressors. Intraoperatively, she had recorded 1600 cc blood loss which is almost twice what we normally see. Apparently, the surgeon who had done the hip arthroscopy a week before had given her a prescription for Lovenox and she was injecting this up until the day before her surgery which would explain the considerable blood loss. She stayed on phenylephrine to maintain her blood pressure and was given fluids but was not transfused. Eventually, her blood pressure normalized and she was transferred to the floor with stabilized blood pressure. She was up with physical therapy and occupational therapy and was weaned off her [employer] by her third postoperative day and transitioned to Dilaudid. Pelvis x-rays taken on her third postoperative day showed good bone and screw fixation and she was discharged on her third postoperative day in good condition. She will be nonweightbearing on her right lower extremity until she is seen in the clinic for her 2-week postop visit. She will be wearing sequential compression devices 24 hours a day 7 days a week for 2 weeks and thereafter only at night for another week. She will be taking 81 mg aspirin daily for 1 month both of these for DVT prophylaxis. She was sent home with a full set of scripts and discharge instructions. She was discharged in good condition. /[id number]/MODL MTDD
== END 2018-05-22 17:32 | disposition home or self-care (01) | DRG 516 ==
LOC: F3N 06:18 → F2N 17:19 → F3N 05-20 13:31
PROVIDERS: ADMIT Orthopaedic Surgery Sports Medicine; ATTEND Orthopaedic Surgery Sports Medicine
PROC: 02HV33Z Insertion of Infusion Device into Superior Vena Cava, Percutaneous Approach (ICD-10-PCS; 2018-05-18)
PROC: 0QS404Z Reposition Right Acetabulum with Internal Fixation Device, Open Approach (ICD-10-PCS; principal; 2018-05-18 08:15)
DX: Q65.89 Other specified congenital deformities of hip (principal); D62 Acute posthemorrhagic anemia; I95.81 Postprocedural hypotension; M16.9 Osteoarthritis of hip, unspecified; M25.851 Other specified joint disorders, right hip; M25.852 Other specified joint disorders, left hip; K21.9 Gastro-esophageal reflux disease without esophagitis; J45.909 Unspecified asthma, uncomplicated
CPT/HCPCS: 97110-GP; 97116-GP; 97161-GP; 97166-GO; 97530-GP; 97535-GO; C1713; C1751; J0690; J1100; J1170; J2250; J2274; J2310; J2370; J2405; J2704; J2765; J3010; P9041